=== PATIENT | female | born 1945 | race Caucasian/White ===

== ENCOUNTER 2018-02-09 15:36 | Inpatient (IN) ==
[2018-02-09] MEDS ORDERED: Insulin Regular, Human 100 UNIT/ML IV ONE (15:47)
[2018-02-09] MEDS ORDERED: *HR* Dextrose 50 % in Water (Syg) 50 ML SYRINGE IVP PRN ×2 (15:47→18:47)
--- NOTE | 2018-02-09 15:52 | Emergency Department Note ---
Disposition Clinical Impression: Dehydration Diabetes mellitus with hyperglycemia Qualifiers: Diabetes mellitus type: other specified (including JACKSON) Diabetes mellitus halfway insulin use: unspecified long term care pharmacist insulin use status Qualified Code(s ): E13.65 - Other specified diabetes mellitus with hyperglycemia Altered mental status Qualifiers: Altered mental status type: stupor Qualified Code(s): R40.1 - Stupor Disposition: Admitted As Inpatient Condition: Serious Recheck wound or abnormal lab - General Chief Complaint: ED General Medical Stated Complaint: abnormal labs Time Seen by Provider: 02/09/18 15:45 Source: EMS, other Limitations: altered mental status Nursing Notes Reviewed: Yes Vital Signs Reviewed: Yes - History of Present Illness HPI Narrative: The patient has [facility] in a [facility] for one week. She has not been conversive at any time during her time there. She had lab tests performed at the fci this morning at 935 and she had a white count of 15.3, hemoglobin of 10 point and platelets of 318. Chemistries were remarkable for a sodium of 140, potassium 4.5, chloride 103, carbon dioxide 29, BUNs elevated 72 , cranial 1.67 and a blood sugar 772. She had LFTs that were unremarkable. The overseeing physician was contacted and it was advised that she should be brought here for further evaluation. She does have a DNR comfort care status has been signed by the but not by a physician at this time and is advised from the fci the wanted to discuss the CODE STATUS with family before formalizing this CODE STATUS. Pt Subjective Complaint: abnormal lab(s), other (Altered mental status) Initial Visit (ago): week(s) (1) Returns Today for: other (Abnormal lab tests) Symptoms Since Prior Visit: no new symptoms Context: called for abnormal lab result Associated symptoms: malaise - Related Data Home Medications Medication Instructions Recorded Confirmed Clopidogrel [Plavix] 75 mg PO DAILY 03/25/16 01/15/18 Liraglutide [Victoza 3-Andrew] 1.8 mg SQ DAILY 03/25/16 03/25/16 Lisinopril/Hydrochlorothiazide each PO DAILY 03/25/16 03/25/16 [Zestoretic 20-25 mg Tablet] Loratadine [Claritin] 10 mg PO DAILY 03/25/16 03/25/16 Lovastatin 40 mg PO HS 03/25/16 03/25/16 Metoprolol [Lopressor] mg PO BID 03/25/16 03/25/16 glipiZIDE [Glipizide] 10 mg PO DAILY 03/25/16 03/25/16 hydrOXYzine pamoate [HydrOXYzine 25 mg PO HS 03/25/16 01/15/18 Pamoate] B 12 1 PO DAILY 01/15/18 Dulaglutide [Trulicity] 0.75 mg SQ 01/15/18 amLODIPine [Norvasc] 1 PO DAILY 01/15/18 Allergies Allergy/AdvReac Type Severity Reaction Status Date / Time propoxyphene [From Darvon] Allergy Fainting Verified 03/25/16 12:29 All systems ED: reviewed and negative except as stated. Past Medical History - Past Medical History Source: old records reviewed, obtained from family, nursing notes reviewed Medical history: Reports: arthritis, cancer, coronary artery disease, CVA (With aphasia), diabetes, hyperlipidemia, hypertension Surgical history: Reports: carotid endarterectomy, hysterectomy Psychiatric history: Reports: no psych history - Social History Smoking Status: Former smoker Smokeless Tobacco Status: No Alcohol use: Reports: none Drug use: Reports: none Physical Exam - General Limitations: altered mental status General appearance: lethargic - Head Head exam: atraumatic - Eye Eye exam: Present: normal appearance. Absent: conjunctival injection - ENT ENT exam: mucous membranes dry - Neck Neck exam: Present: normal inspection. Absent: tenderness, lymphadenopathy - Chest Chest inspection: Present: normal inspection, symmetric chest wall rise - Respiratory Respiratory exam: Present: normal lung sounds bilaterally, other (Patient is not dyspneic). Absent: respiratory distress, wheezes, prolonged expiratory phase - Cardiovascular Cardiovascular exam: Present: regular rate, normal rhythm, normal heart sounds. Absent: tachycardia - Abdominal Exam Abdominal exam: Present: soft, Non-Tender. Absent: tenderness, distention, guarding, rebound, rigidity - Extremities Exam Extremities exam: Present: normal inspection. Absent: pedal edema - Expanded Lower Extremity Exam Neurovascular/Tendon exam: Present: normal capillary refill Gait: not tested/not observed - Neurological Exam Neurological exam: Absent: alert, oriented X3 - Psychiatric Psychiatric exam: Present: flat affect - Skin Skin exam: Present: warm, dry, intact, pallor. Absent: diaphoresis Course Course Narrative: Return of laboratory I discussed the patient's earlier laboratories and current labs with Dr. Bishop. She is continued with the DNR CC status that he was coordinating with the patient's . She will continue with IV fluids and insulin drip per protocol. Verbal orders are obtained for the patient's inpatient care. Vital Signs Temperature 98.9 F 02/09/18 15:39 Pulse Rate 88 02/09/18 15:39 Respiratory Rate 26 02/09/18 15:39 Blood Pressure 153/95 02/09/18 15:39 O2 Sat by Pulse Oximetry 93 02/09/18 15:39 Temperature 99.0 F 02/09/18 19:36 Pulse Rate 90 02/09/18 19:36 Respiratory Rate 17 02/09/18 19:36 Blood Pressure 127/75 02/09/18 19:36 O2 Sat by Pulse Oximetry 98 02/09/18 19:36 Oxygen Delivery Oxygen Delivery Room Air Recheck wound or abnormal lab - Medical Records Medical records reviewed: Yes I reviewed the patient's medical records. - Lab Data Lab results reviewed: Yes I reviewed the patient's lab results. Lab Results 02/09/18 02/09/18 02/09/18 Range/Units 15:47 15:47 15:55 Sample Site ABG pH (7.32-7.45) pH Units ABG pCO2 (35-45) mmHg ABG pO2 (85-104) mmHg ABG HCO3 (21-27) mEq/L ABG Total CO2 (20-26) mEq/L ABG O2 Saturation (95-98) % ABG Base Excess (-2 to 3) mEq/L Tesfaye Test Inspired O2 (1-15=lpm [id number]=%) POC Glucose > 600 H* > 600 H* (70-99) mg/dL Lactic Acid (0.5-2.2) mmol/L Beta-Hydroxybutyric Acd (0.02-0.27) mmol/L Urine Color Light Yellow (Yellow) Urine Clarity Cloudy A (Clear) Urine pH 5.0 (5.0-8.0) pH Units Ur Specific [place] 1.015 (1.010-1.025) Urine Protein Negative (Neg-Trace) mg/dL Urine Glucose (UA) 500 H (Normal) mg/dL Urine Ketones Negative (Negative) mg/dL Urine Blood Small H (Negative) Urine Nitrite Negative (Negative) Urine Bilirubin Negative (Negative) Urine Urobilinogen Normal (Normal) mg/dL Ur Leukocyte Esterase Small H (Negative) Urine Microscopic WBC 3-5 H (0-3) per hpf Ur Squamous Epith Cells None Seen (None-Few) per lpf Urine Bacteria Many H (None-Few) per hpf Urine Yeast Many H (None Seen) per hpf Ur Culture Indicated? YES A (NO) 02/09/18 02/09/18 02/09/18 Range/Units 16:07 16:07 16:13 Sample Site R Radial ABG pH 7.47 H (7.32-7.45) pH Units ABG pCO2 35 (35-45) mmHg ABG pO2 66 L (85-104) mmHg ABG HCO3 25 (21-27) mEq/L ABG Total CO2 26 (20-26) mEq/L ABG O2 Saturation 94 L (95-98) % ABG Base Excess 2 (-2 to 3) mEq/L Tesfaye Test N/A Inspired O2 21.0 (1-15=lpm [id number]=%) POC Glucose (70-99) mg/dL Lactic Acid 1.2 (0.5-2.2) mmol/L Beta-Hydroxybutyric Acd 0.60 H (0.02-0.27) mmol/L Urine Color (Yellow) Urine Clarity (Clear) Urine pH (5.0-8.0) pH Units Ur Specific Kirkwood (1.010-1.025) Urine Protein (Neg-Trace) mg/dL Urine Glucose (UA) (Normal) mg/dL Urine Ketones (Negative) mg/dL Urine Blood (Negative) Urine Nitrite (Negative) Urine Bilirubin (Negative) Urine Urobilinogen (Normal) mg/dL Ur Leukocyte Esterase (Negative) Urine Microscopic WBC (0-3) per hpf Ur Squamous Epith Cells (None-Few) per lpf Urine Bacteria (None-Few) per hpf Urine Yeast (None Seen) per hpf Ur Culture Indicated? (NO) 02/09/18 02/09/18 02/09/18 Range/Units 16:57 16:59 17:45 Sample Site ABG pH (7.32-7.45) pH Units ABG pCO2 (35-45) mmHg ABG pO2 (85-104) mmHg ABG HCO3 (21-27) mEq/L ABG Total CO2 (20-26) mEq/L ABG O2 Saturation (95-98) % ABG Base Excess (-2 to 3) mEq/L Tesfaye Test Inspired O2 (1-15=lpm ub33-357=%) POC Glucose 586 H* > 600 H* 465 H* (70-99) mg/dL Lactic Acid (0.5-2.2) mmol/L Beta-Hydroxybutyric Acd (0.02-0.27) mmol/L Urine Color (Yellow) Urine Clarity (Clear) Urine pH (5.0-8.0) pH Units Ur Specific [place]wood (1.010-1.025) Urine Protein (Neg-Trace) mg/dL Urine Glucose (UA) (Normal) mg/dL Urine Ketones (Negative) mg/dL Urine Blood (Negative) Urine Nitrite (Negative) Urine Bilirubin (Negative) Urine Urobilinogen (Normal) mg/dL Ur Leukocyte Esterase (Negative) Urine Microscopic WBC (0-3) per hpf Ur Squamous Epith Cells (None-Few) per lpf Urine Bacteria (None-Few) per hpf Urine Yeast (None Seen) per hpf Ur Culture Indicated? (NO) - EKG Data EKG attestation: Yes I reviewed and interpreted this EKG. EKG shows normal: sinus rhythm, axis, intervals, QRS complexes, ST-T waves Rate: normal Interpretation: no acute changes, normal EKG Critical Care Time Critical Care Time: Yes Total Critical Care Time: 45 Attestation: As this patient did present with signs and symptoms of potential life- threatening illness requiring my urgent intervention, total critical care time in this patient's care has been 45 minutes, not withstanding separately reportable procedures.
[2018-02-09] MEDS ORDERED: Insulin Human Regular 100 UNIT in 0.9 % Sodium Chloride 100 ML IVC SCH ×2 (16:00→18:47)
[2018-02-09] MEDS: 0.9 % Sodium Chloride 1,000 ML IVC SCH ×3 (16:03→19:44)
[2018-02-09 16:07] LABS: Bilirubin,Urine Negative (Negative); Blood,Urine Small (Negative); Clarity,Urine Cloudy (Clear); Glucose,Urine (UA) 500 mg/dL (Normal); Ketones,Urine Negative (Negative); Leukocyte Esterase,Urine Small (Negative); Nitrite,Urine Negative (Negative); Protein,Urine Negative (Neg-Trace); Specific Gravity,Urine 1.015 (1.010-1.025); Urobilinogen,Urine Normal (Normal)
[2018-02-09 16:15] LABS: ABG Base Excess 2 mEq/L (-2 to 3); ABG HCO3 25 mEq/L (21-27); ABG Oxygen Saturation 94 % (95-98); ABG PCO2 35 mmHg (35-45); ABG PH 7.47 pH Units (7.32-7.45); ABG PO2 66 mmHg (85-104); ABG TCO2 26 mEq/L (20-26)
[2018-02-09 16:17] LABS: Bacteria,Urine Many per hpf (None-Few); Color,Urine Light Yellow (Yellow); Squamous Epithelial Cell,Urine None Seen per lpf (None-Few); Yeast,Urine Many per hpf (None Seen)
[2018-02-09] MEDS ORDERED: cefTRIAXone 2,000 MG in Water for inj. (sterile) 20 ML 20 ML IVP ONE (17:24)
[2018-02-09] MEDS ORDERED: Naloxone 0.4 MG/ML INJ IVP PRN (18:47)
[2018-02-09] MEDS ORDERED: MORPHINE SUL Oral CONC 10 MG/0.5 ML ORAL.SYG SL PRN (20:09)
[2018-02-09 21:19] LABS: Calcium 8.8 mg/dL (8.6-10.3); Potassium 3.5 mEq/L (3.5-5.1)
[2018-02-09] MEDS: MORPHINE SUL Oral CONC 10 MG/0.5 ML ORAL.SYG SL PRN (23:52)
[2018-02-10] MEDS: 0.9 % Sodium Chloride 1,000 ML IVC SCH (03:31)
[2018-02-10] MEDS ORDERED: Dextrose Gel 15 GM/37.5 ML TUBE PO PRN ×2 (07:56)
[2018-02-10] MEDS ORDERED: *HR* Dextrose 50 % in Water (Syg) 50 ML SYRINGE IVP PRN (07:56)
[2018-02-10] MEDS ORDERED: D5% in Water 1,000 ML IVC PRN (07:56)
[2018-02-10] MEDS ORDERED: cefTRIAXone 2,000 MG in 0.9 % Sodium Chloride Mini Bag 100 ML IVPB SCH (09:00)
--- NOTE | 2018-02-10 09:58 | Electrocardiograph Report ---
[address] [address] Test Date: 2018-02-09 Pat Name: Jazlyn Larson Department: [id number] Room: [facility] Gender: F Inspector [employer]: [id number] : 1945 Requested By: Irving Adams Order Number: [id number] Reading MD: Hal Shrestha Measurements Intervals [place] Rate: 82 P: 49 CT: 161 QRS: 25 QRSD: 88 T: 39 QT: 373 QTc: 412 Interpretive Statements SINUS RHYTHM Electronically Signed On 02-10-2018 9:57:36 EDT by Hal Shrestha
--- NOTE | 2018-02-10 12:35 | Internal Med History&Physical ---
Date of Encounter: 02/10/18 Time of Encounter: 12:15 Assessment and Plan (1) Diabetes mellitus with hyperglycemia Current visit: Yes Status: Acute Now resolved. She was started on IV fluids and insulin drip through emergency room. She will have Accu-Cheks with SSI and continue tube feedings. Qualifiers: Diabetes mellitus type: other specified (including JACKSON) Diabetes mellitus fdc insulin use: unspecified fdc insulin use status Qualified Code (s): E13.65 - Other specified diabetes mellitus with hyperglycemia (2) CVA (cerebral vascular accident) Current visit: Yes Status: Acute Continue Plavix Qualifiers: CVA mechanism: unspecified Qualified Code(s): I63.9 - Cerebral infarction, unspecified (3) Anemia Current visit: Yes Status: Acute Will order anemia testing in a.m. Qualifiers: Anemia type: unspecified type Qualified Code(s): D64.9 - Anemia, unspecified (4) CKD (chronic kidney disease) stage 3, GFR 30-59 ml/min Current visit: Yes Status: Acute Will hold lisinopril/HCTZ and give IV fluids. Recheck labs in a.m. (5) Neutrophilic leukocytosis Current visit: Yes Status: Acute She was started on Rocephin in emergency room. Will add Zithromax and lactobacillus. (6) Hypertension Current visit: No Status: Chronic Continue metoprolol but hold Norvasc. Qualifiers: Hypertension type: essential hypertension Qualified Code(s): I10 - Essential (primary) hypertension Internal Medicine - H&P: HPI Chief complaint: Acute renal failure, hyperglycemia Admitted From: Emergency Dept Plans for Post Hospital Care: Home History of present illness: Ms. Larson is a 72 year old female who [facility] room after lab results returned showing blood sugar 772 MG/DL, leukocytosis with left shift, and possible acute on chronic renal failure. She was admitted to [facility] floor for ongoing care needs. 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 She made minimal improvement during [facility] stay. She has had no previous large distribution strokes but has had lacunar infarcts per family report. She has had no seizures. A feeding tube was placed at [facility]. Past Med Surg Social Fam HX - Past Medical History Medical history: arthritis, cancer, coronary artery disease, CVA, diabetes, hyperlipidemia, hypertension Psychiatric history: no psych history - Past Surgical History Surgical History: carotid endarterectomy, hysterectomy - Social History Smoking Status: Former smoker Smokeless Tobacco Status: No Alcohol use: none Drug use: none - Family History Father Living Status: Mother Living Status: Hx Family Cardiac Disorders: Yes Internal Medicine - H&P: Meds Clopidogrel [Plavix] 75 mg PO DAILY 03/25/16 [History] Liraglutide [Victoza 3-Andrew] 1.8 mg SQ DAILY 03/25/16 [History] Lisinopril/Hydrochlorothiazide [Zestoretic 20-25 mg Tablet] each PO DAILY [History] Loratadine [Claritin] 10 mg PO DAILY 03/25/16 [History] Lovastatin 40 mg PO HS 03/25/16 [History] Metoprolol [Lopressor] mg PO BID 03/25/16 [History] glipiZIDE [Glipizide] 10 mg PO DAILY 03/25/16 [History] hydrOXYzine pamoate [HydrOXYzine Pamoate] 25 mg PO HS 03/25/16 [History] B 12 1 PO DAILY 01/15/18 [History] Dulaglutide [Trulicity] 0.75 mg SQ 01/15/18 [History] amLODIPine [Norvasc] 1 PO DAILY 01/15/18 [History] 3 Allergy/AdvReac Type Severity Reaction Status Date / Time propoxyphene [From Darvon] Allergy Fainting Verified 03/25/16 12:29 All Systems PM: A 10-system review of systems was performed and is negative for pertinent findings except as documented above in the HPI. Review of systems: Review of systems is obtained from family since patient is nonverbal. Gen.: Her weight has minimally increased from 56.8 kg on 03/26/2016 to 58.967 kg on admission Cardiovascular: She has history of hypertension but no PA heart failure angina DVT or pulmonary embolus Respiratory: She smoked briefly in early adulthood but has no known chronic lung disease and does not use oxygen routinely at the prison GI: No known disorders of liver gallbladder or exocrine pancreas. She had G- tube placed during her recent [facility] hospitalization as per history of present illness : No history of hematuria dysuria or kidney stones Neurologic: As per history of present illness Endocrine: She was diagnosed with DM 2 approximately 1986. Hemoglobin A1c was 8.9% on 02/09/2018. She has history of hyperlipidemia but no known thyroid disease. Hematology/oncology: She has had skin cancers but no known internal malignancies. She had anemia on labs 02/09/2018. Psychiatric: There is no history of anxiety depression or other mental health issues [place] skeletal: She has DJD but no known gout or other bone joint or muscle disorders. - Constitutional Vitals: Temp Pulse Resp BP Pulse Ox 96.0 F L 79 24 123/75 94 02/10/18 10:10 02/10/18 10:10 02/10/18 10:10 02/10/18 10:10 02/10/18 10:10 Exam: Gen.: She is a well-developed lean female lying in bed who does not respond to voice or light touch HEENT: Head is atraumatic and normal cephalic. Eyes: She does not open her eyes. Her gaze is conjugate. Mouth: Mucosa is dry but she is mouth breathing Neck: There is no thyromegaly or adenopathy noted. Heart: Regular without murmurs gallops or ectopics Lungs: No wheezes or crackles are heard. She has Ole-Chamberlain respirations. Abdomen: G-tube is in place in the epigastric area. No masses or guarding are noted. Extremities: She has DJD changes of her hands. She is wearing AN hose which I did not remove. There is no pitting edema of her lower legs. Neurologic: Mental status: She is non-verbal and does not respond to voice or light touch. Cranial nerves: She makes no spontaneous facial movements. She does not follow commands. Motor: The right arm is in a flexed and contracted position. She moves the left arm randomly. No further neurologic testing is attempted. Skin: Warm and dry Internal Med - H&P Results - Labs CBC & Chem 7: 02/09/18 20:28 Labs: BMP 02/09/18 20:28 Sodium 148 H Potassium 3.5 Chloride 114 H Carbon Dioxide 24 BUN 58 H Creatinine 1.43 H Glucose 394 H Calcium 8.8
[2018-02-10] MEDS: 0.45 % Sodium Chloride w/KCl 20 MEQ/1,000 ML MLS IVC SCH (15:42)
[2018-02-10] MEDS: Azithromycin 500 MG in D5% in Water 250 ML IVPB SCH (15:42)
[2018-02-10] MEDS: Insulin LISPRO 300 UNITS/3 ML VIAL SQ SCH ×3 (15:43→20:31)
[2018-02-10] MEDS: cefTRIAXone 2,000 MG in Water for inj. (sterile) 20 ML IVPB SCH (16:22)
[2018-02-10] MEDS: MORPHINE SUL Oral CONC 10 MG/0.5 ML ORAL.SYG SL PRN (18:20)
[2018-02-10] MEDS: Lactobacillus 1 EACH CAP.SPRINK GTUBE SCH (20:35)
[2018-02-11] MEDS: 0.45 % Sodium Chloride w/KCl 20 MEQ/1,000 ML MLS IVC SCH ×2 (04:52→17:48)
[2018-02-11] MEDS: MORPHINE SUL Oral CONC 10 MG/0.5 ML ORAL.SYG SL PRN ×3 (05:03→16:47)
[2018-02-11 05:42] LABS: Basophils % 0.3 %; Eosinophils # 0.2 K/mcL (0.0-0.6); Eosinophils % 1.1 %; Hematocrit 28.7 % (35.3-44.9); Hemoglobin 9.2 g/dL (11.5-15.4); Immature Granulocytes % 0.6 % (0-4); Lymphocytes % 17.4 %; Mean Corpuscular HGB Conc 32.1 g/dL (31.6-35.5); Mean Corpuscular Hemoglobin 30.2 pg (28.0-33.3); Mean Corpuscular Volume 94.1 fL (83.0-100.0); Mean Platelet Volume 10.9 fL (9.4-12.4); Monocytes # 0.9 K/mcL (0.0-1.3); Monocytes % 6.7 %; Platelet Count 277 K/mcL (140-400); Red Blood Count 3.05 M/mcL (3.82-4.97); Segmented Neutrophils % 73.9 %
[2018-02-11] MEDS: Insulin LISPRO 300 UNITS/3 ML VIAL SQ SCH ×4 (05:47→21:43)
[2018-02-11 06:04] LABS: Calcium 8.4 mg/dL (8.6-10.3); Magnesium 2.1 mg/dL (1.6-2.6); Potassium 3.7 mEq/L (3.5-5.1); Uric Acid 3.5 mg/dL (2.3-7.6)
[2018-02-11 06:18] LABS: Lymphocytes # 2.4 K/mcL (0.6-4.6)
[2018-02-11] MEDS: Lactobacillus 1 EACH CAP.SPRINK GTUBE SCH ×2 (08:17→21:43)
--- NOTE | 2018-02-11 09:16 | Internal Med Progress Note ---
Date of Encounter: 02/11/18 Time of Encounter: 09:08 - Assessment and plan (1) Diabetes mellitus with hyperglycemia Current Visit: Yes Status: Acute Assessment and plan: February 11. We will restart glipizide at a dose of 5 mg daily. Qualifiers: Diabetes mellitus type: other specified (including JACKSON) Diabetes mellitus watermelon inspector insulin use: unspecified half-way insulin use status Qualified Code (s): E13.65 - Other specified diabetes mellitus with hyperglycemia (2) CVA (cerebral vascular accident) Current Visit: Yes Status: Acute Assessment and plan: February 11. Continue Plavix. Qualifiers: CVA mechanism: unspecified Qualified Code(s): I63.9 - Cerebral infarction, unspecified (3) Anemia Current Visit: Yes Status: Acute Assessment and plan: February 11. Anemia testing is pending. Qualifiers: Anemia type: unspecified type Qualified Code(s): D64.9 - Anemia, unspecified (4) CKD (chronic kidney disease) stage 3, GFR 30-59 ml/min Current Visit: Yes Status: Acute Assessment and plan: February 11. BUN and creatinine have decreased to 33 and 1.11 respectively with estimated GFR 48. Continue IV fluids and withholding lisinopril/HCTZ. Recheck labs in a.m. (5) Neutrophilic leukocytosis Current Visit: Yes Status: Acute Assessment and plan: February 11. Improved. Continue Rocephin and Zithromax with lactobacillus. (6) Hypertension Current Visit: No Status: Chronic Assessment and plan: February 11. Will increase metoprolol. Continue to hold Norvasc. Qualifiers: Hypertension type: essential hypertension Qualified Code(s): I10 - Essential (primary) hypertension - Subjective Interval history: February 11. No new problems have arisen. - Constitutional Vitals: Temp Pulse Resp BP Pulse Ox 98.3 F 89 20 161/78 98 02/11/18 08:13 02/11/18 08:13 02/11/18 08:13 02/11/18 08:13 02/11/18 08:13 Exam: She is lying in bed moaning. He does not respond meaningfully to voice or light touch. Her committee show no edema. I reviewed her medications. I reviewed pertinent lab results trends with her . Internal Medicine: Result - Labs CBC & Chem 7: 02/11/18 04:45 02/11/18 04:45 Labs: Short CBC 02/11/18 Range/Units 04:45 WBC 13.5 H (4.3-11.1) K/mcL Hgb 9.2 L (11.5-15.4) g/dL Hct 28.7 L (35.3-44.9) % Plt Count 277 (140-400) K/mcL Neutrophils # 10.0 H (1.6-8.9) K/mcL BMP 02/11/18 04:45 Sodium 148 H Potassium 3.7 Chloride 113 H Carbon Dioxide 26 BUN 33 H Creatinine 1.11 Glucose 403 H Calcium 8.4 L - ABG Interpretation ABG results: ABG ABG pH 7.47 pH Units (7.32-7.45) H 02/09/18 16:13 ABG pCO2 35 mmHg (35-45) 02/09/18 16:13 ABG pO2 66 mmHg (85-104) L 02/09/18 16:13 ABG O2 Saturation 94 % (95-98) L 02/09/18 16:13 - VTE Documentation of Mechanical Device: Graduated compression elastic hosiery Consult Discharge Plan - Plan Referrals: Peterson Bishop MD [Primary Care Provider] - 1 week
[2018-02-11 09:58] LABS: Folate 13.7 ng/mL (3.0-16.0)
[2018-02-11] MEDS: *HR* GlipiZIDE 5 MG TABLET GTUBE SCH (12:39)
[2018-02-11] MEDS: Azithromycin 500 MG in D5% in Water 250 ML IVPB SCH (15:49)
[2018-02-11] MEDS: cefTRIAXone 2,000 MG in Water for inj. (sterile) 20 ML IVPB SCH (17:39)
[2018-02-11] MEDS: ALPRAZolam 0.5 MG TABLET GTUBE PRN (21:43)
[2018-02-12] MEDS: 0.45 % Sodium Chloride w/KCl 20 MEQ/1,000 ML MLS IVC SCH ×2 (05:03→17:07)
[2018-02-12 06:11] LABS: Basophils % 0.2 %; Eosinophils # 0.1 K/mcL (0.0-0.6); Hematocrit 27.2 % (35.3-44.9); Hemoglobin 8.8 g/dL (11.5-15.4); Immature Granulocytes % 0.6 % (0-4); Lymphocytes # 1.9 K/mcL (0.6-4.6); Mean Corpuscular HGB Conc 32.4 g/dL (31.6-35.5); Mean Corpuscular Hemoglobin 30.3 pg (28.0-33.3); Mean Corpuscular Volume 93.8 fL (83.0-100.0); Mean Platelet Volume 10.1 fL (9.4-12.4); Monocytes # 0.9 K/mcL (0.0-1.3); Monocytes % 6.8 %; Platelet Count 236 K/mcL (140-400); Red Cell Distribution Width 13.8 % (11.5-14.5); Segmented Neutrophils % 77.4 %
[2018-02-12 06:15] LABS: Neutrophils # 10.5 K/mcL (1.6-8.9)
[2018-02-12 07:11] LABS: BUN/Creatinine Ratio 24 (6-26); Blood Urea Nitrogen 24 mg/dL (8-23); Carbon Dioxide 26 mEq/L (23-29); Chloride 107 mEq/L (98-107); Glucose 283 mg/dL (70-105); Osmolality,Calculated 302 (280-300); Potassium 4.1 mEq/L (3.5-5.1); Sodium 139 mEq/L (136-145); eGFR For African Americans > 60 (> 60); eGFR For Non-African Americans 55 (> 60)
[2018-02-12] MEDS: ALPRAZolam 0.5 MG TABLET GTUBE PRN (08:42)
[2018-02-12] MEDS: Lactobacillus 1 EACH CAP.SPRINK GTUBE SCH (08:42)
[2018-02-12] MEDS: *HR* GlipiZIDE 5 MG TABLET GTUBE SCH (08:43)
[2018-02-12] MEDS: Insulin LISPRO 300 UNITS/3 ML VIAL SQ SCH ×4 (08:43→20:44)
--- NOTE | 2018-02-12 15:09 | Internal Med Progress Note ---
Date of Encounter: 02/12/18 Time of Encounter: 15:00 - Assessment and plan (1) Diabetes mellitus with hyperglycemia Current Visit: Yes Status: Acute Assessment and plan: February 11. We will restart glipizide at a dose of 5 mg daily. February 12. Continue glipizide and Accu-Cheks with SSI. Qualifiers: Diabetes mellitus type: other specified (including JACKSON) Diabetes mellitus ferry terminal supervisor insulin use: unspecified ferry terminal supervisor insulin use status Qualified Code (s): E13.65 - Other specified diabetes mellitus with hyperglycemia (2) CVA (cerebral vascular accident) Current Visit: Yes Status: Acute Assessment and plan: February 11. Continue Plavix. Qualifiers: CVA mechanism: unspecified Qualified Code(s): I63.9 - Cerebral infarction, unspecified (3) Anemia Current Visit: Yes Status: Acute Assessment and plan: February 11. Anemia testing is pending. February 12. Anemia testing showed iron 13, transferrin saturation 5%, transferrin 172, ferritin 121, B12 743, and folate 13.7. Will start ferrous sulfate with vitamin C in a.m. Qualifiers: Anemia type: unspecified type Qualified Code(s): D64.9 - Anemia, unspecified (4) CKD (chronic kidney disease) stage 3, GFR 30-59 ml/min Current Visit: Yes Status: Acute Assessment and plan: February 11. BUN and creatinine have decreased to 33 and 1.11 respectively with estimated GFR 48. Continue IV fluids and withholding lisinopril/HCTZ. Recheck labs in a.m. February 12. Further improvement with BUN and creatinine 24 and 0.99 respectively with estimated GFR 55. Continue present management. (5) Neutrophilic leukocytosis Current Visit: Yes Status: Acute Assessment and plan: February 11. Improved. Continue Rocephin and Zithromax with lactobacillus. February 12. She developed diarrhea yesterday so Rocephin was discontinued. Will also stop Zithromax and lactobacillus since no obvious source of infection is seen. (6) Hypertension Current Visit: No Status: Chronic Assessment and plan: February 11. Will increase metoprolol. Continue to hold Norvasc. February 12. Remains off lisinopril/HCTZ and amlodipine. Blood pressure is low so metoprolol will be held also. Qualifiers: Hypertension type: essential hypertension Qualified Code(s): I10 - Essential (primary) hypertension - Subjective Interval history: February 11. No new problems have arisen. February 12. No new problems have arisen. - Constitutional Vitals: Temp Pulse Resp BP Pulse Ox 97.9 F 78 19 74/43 96 02/12/18 10:53 02/12/18 10:53 02/12/18 10:53 02/12/18 10:53 02/12/18 10:53 Exam: She is resting comfortably in bed and appears in no acute distress. She moves her arms spontaneously but does not respond meaningfully to light touch. Her feet show no edema. I reviewed her medications and lab results. Internal Medicine: Result - Labs CBC & Chem 7: 02/12/18 06:03 02/12/18 06:03 Labs: Short CBC 02/12/18 Range/Units 06:03 WBC 13.5 H (4.3-11.1) K/mcL Hgb 8.8 L (11.5-15.4) g/dL Hct 27.2 L (35.3-44.9) % Plt Count 236 (140-400) K/mcL Neutrophils # 10.5 H (1.6-8.9) K/mcL BMP 02/12/18 06:03 Sodium 139 Potassium 4.1 Chloride 107 Carbon Dioxide 26 BUN 24 H Creatinine 0.99 Glucose 283 H Calcium 8.0 L - ABG Interpretation ABG results: ABG ABG pH 7.47 pH Units (7.32-7.45) H 02/09/18 16:13 ABG pCO2 35 mmHg (35-45) 02/09/18 16:13 ABG pO2 66 mmHg (85-104) L 02/09/18 16:13 ABG O2 Saturation 94 % (95-98) L 02/09/18 16:13 - VTE Documentation of Mechanical Device: Graduated compression elastic hosiery Consult Discharge Plan - Plan Referrals: Peterson Bishop MD [Primary Care Provider] - 1 week
[2018-02-12] MEDS: Azithromycin 500 MG in D5% in Water 250 ML IVPB SCH (15:36)
[2018-02-12] MEDS: cefTRIAXone 2,000 MG in Water for inj. (sterile) 20 ML IVPB SCH (17:01)
[2018-02-13] MEDS: 0.45 % Sodium Chloride w/KCl 20 MEQ/1,000 ML MLS IVC SCH (05:44)
[2018-02-13] MEDS ORDERED: *HR* Enoxaparin 40 MG/0.4 ML SYRINGE SQ SCH (06:00)
[2018-02-13] MEDS ORDERED: Ascorbic Acid 500 MG TABLET PO SCH (06:30)
[2018-02-13 06:38] VITALS: BP 121/56
[2018-02-13] MEDS: *HR* GlipiZIDE 5 MG TABLET GTUBE SCH (07:57)
--- NOTE | 2018-02-13 09:50 | Discharge Summary ---
Date of Encounter: 02/13/18 Time of Encounter: 09:40 - Discharge Diagnosis (1) Diabetes mellitus with hyperglycemia Priority: Primary Status: Acute Qualifiers: Diabetes mellitus type: other specified (including JACKSON) Diabetes mellitus snf insulin use: unspecified long term care pharmacist insulin use status Qualified Code (s): E13.65 - Other specified diabetes mellitus with hyperglycemia (2) CVA (cerebral vascular accident) Priority: Secondary Status: Chronic Qualifiers: CVA mechanism: unspecified Qualified Code(s): I63.9 - Cerebral infarction, unspecified (3) Anemia Priority: Secondary Status: Acute Qualifiers: Anemia type: unspecified type Qualified Code(s): D64.9 - Anemia, unspecified (4) CKD (chronic kidney disease) stage 3, GFR 30-59 ml/min Priority: Secondary Status: Chronic (5) Neutrophilic leukocytosis Priority: Secondary Status: Acute (6) Hypertension Priority: Secondary Status: Chronic Qualifiers: Hypertension type: essential hypertension Qualified Code(s): I10 - Essential (primary) hypertension Hospital course: Ms. Larson is a 72 year old female who was sent from detention to emergency room after lab results returned showing blood sugar 772 MG/DL, leukocytosis with left shift, and possible acute on chronic renal failure. She was admitted to [facility] floor for ongoing care needs. Initial orders were written by the emergency room physician. I saw her on February 10 and performed the history and physical. She was given IV fluids and insulin drip through emergency room. Blood sugars were monitored and returned to satisfactory and safe range. She will continue her present diabetic treatment regimen upon discharge. Anemia testing showed iron 13, transferrin saturation 5%, transferrin 172, ferritin 121, B12 743, and folate 13.7. She was started on ferrous sulfate with vitamin C and this will be continued at the detention. Her blood pressure medications were held because of hypotension. Blood pressures remained stable off medication. This will be monitored at the detention. Lisinopril/HCTZ was held and IV fluids were given. Azotemia improved significantly with BUN and creatinine being 24 and 0.99 respectively with estimated GFR 55 on 02/12/2018. She was given empiric Rocephin and Zithromax for leukocytosis. The etiology of leukocytosis was not determined. She developed some diarrhea so antibiotics were discontinued. C. difficile testing returned negative. This will be monitored at the detention. On February 13 she was stable for discharge back to [place] where she will follow with me. - Time Spent with Patient Total time spent providing and/or coordinating discharge services: - Discharge Medications Prescriptions: ALPRAZolam [Xanax 0.5 MG Tablet] 0.5 mg GTUBE Q6H PRN 15 Days #60 tablet PRN Reason: Anxiety Home Medications: Clopidogrel [Plavix] 75 mg PO DAILY 03/25/16 [History] glipiZIDE [Glipizide] 10 mg PO DAILY 03/25/16 [History] B 12 1 PO DAILY 01/15/18 [History] Dulaglutide [Trulicity] 0.75 mg SQ 01/15/18 [History] ALPRAZolam [Xanax 0.5 MG Tablet] 0.5 mg GTUBE Q6H PRN 15 Days #60 tablet [Rx] Ascorbic Acid [Vitamin C] 500 mg PO 0630 tablet 02/13/18 [Rx] Ferrous Sulfate 325 mg PO 0630 tablet 02/13/18 [Rx] Allergies/Adverse Reactions: 3 Allergy/AdvReac Type Severity Reaction Status Date / Time propoxyphene [From Darvon] Allergy Fainting Verified 03/25/16 12:29 Date of admission: 02/12/18 15:15 Primary care physician: Peterson Bishop MD - Constitutional Vitals: Temp Pulse Resp BP Pulse Ox 98.1 F 73 17 121/56 94 02/13/18 06:00 02/13/18 06:00 02/13/18 06:00 02/13/18 06:00 02/13/18 06:00 - Patient Status Disposition: Transfer SNF Condition: Serious Functional capacity at discharge: bed bound - Discharge Instructions Follow Up With: Peterson Bishop MD [Primary Care Provider] - 1 week - Diet and Activity Activity: resume usual activities as tolerated Diet: advance to your usual diet - VTE Documentation of Mechanical Device: Graduated compression elastic hosiery
--- NOTE | 2018-02-13 09:59 | Physician Discharge Referral ---
ExtendedCare Referral Info Transfer To: [facility] Provider in Charge: Dario Provider in Charge after Transfer: PCP (Dario) - Diagnosis (1) Diabetes mellitus with hyperglycemia Priority: Primary Status: Acute (2) CVA (cerebral vascular accident) Priority: Secondary Status: Chronic (3) Anemia Priority: Secondary Status: Acute (4) CKD (chronic kidney disease) stage 3, GFR 30-59 ml/min Priority: Secondary Status: Chronic (5) Neutrophilic leukocytosis Priority: Secondary Status: Acute (6) Hypertension Priority: Secondary Status: Chronic Prognosis: Poor Aware of Diagnosis: Family - Transfer Medications Prescriptions: ALPRAZolam [Xanax 0.5 MG Tablet] 0.5 mg GTUBE Q6H PRN 15 Days #60 tablet PRN Reason: Anxiety Home Medications: Clopidogrel [Plavix] 75 mg PO DAILY 03/25/16 [History] glipiZIDE [Glipizide] 10 mg PO DAILY 03/25/16 [History] B 12 1 PO DAILY 01/15/18 [History] Dulaglutide [Trulicity] 0.75 mg SQ 01/15/18 [History] ALPRAZolam [Xanax 0.5 MG Tablet] 0.5 mg GTUBE Q6H PRN 15 Days #60 tablet [Rx] Ascorbic Acid [Vitamin C] 500 mg PO 0630 tablet 02/13/18 [Rx] Ferrous Sulfate 325 mg PO 0630 tablet 02/13/18 [Rx] Allergies/Adverse Reactions: 3 Allergy/AdvReac Type Severity Reaction Status Date / Time propoxyphene [From Darvon] Allergy Fainting Verified 03/25/16 12:29 - Respiratory Orders Smoking Cessation: Smoking cessation has been advised. For more information, call the [place] Tobacco Quit Line at 3-073-KLEA-NOW. - Lab Orders Lab Orders: Other (include drug levels w/frequency) (CBC with differential, BMP in 1 week) - Mobility Orders Bedrest - Rehabiliation Orders Rehab Potential: Poor - Diet Orders Tube Feedings (type/amount/rate): Glucerna (or equivalent) one can 5 times per day follow with 200 mL water. CERTIFICATION: I certify that the transfer of the above named patient to an Extended Care Facility is necessary for the continuing treatment of the diagnosis listed. The above information is true and accurate reflection of patient's current condition. Confidential - Redisclosure prohibited without a patient's written consent.
== END 2018-02-13 11:35 | DRG 638 ==
LOC: EMEROOPIK 15:36 → INPPIK 15:36
PROVIDERS: ADMIT Internal Medicine; ATTEND Internal Medicine